=== PATIENT | female | born 1985 | race Caucasian/White ===

== ENCOUNTER 2016-07-05 16:24 | Emergency (ER) | payer MEDICAID ==
[2016-07-05 17:00] VITALS: BP 139/83
--- NOTE | 2016-07-05 17:42 | ERNOTE ---
Lower Extremity HPI - Narrative Date of Service: 07/05/16 - General Lower Extremities Pain: 2nd toe: left Source: patient Exam Limitations: no limitations - Immun/Allergies/Home Medications Allergies/Adverse Reactions: Allergies Allergy/AdvReac Type Severity Reaction Status Date / Time codeine Allergy Verified 07/05/16 17:00 hydrocodone Allergy Verified 07/05/16 17:00 Home Medications: HOME MEDICATIONS buPROPion HCL [Wellbutrin] 300 mg PO DAILY 09/02/15 [Last Taken Unknown] Fluoxetine HCl 20 mg PO DAILY 07/05/16 [Last Taken Unknown] Naproxen [Naprosyn] 500 mg PO BID #60 tablet 07/05/16 [Last Taken Unknown] - History of Present Illness Occurred: other - 2 days ago Location of Incident: home Method of Injury: Reports: direct blow Loss of Consciousness: Reports: no loss of consciousness Other Injuries: Reports: none Review of Systems - Review of Systems Constitutional: Present: See HPI EYE: Present: no symptoms reported ENT: Present: no symptoms reported Respiratory: Present: no symptoms reported Cardiology: Present: no symptoms reported Gastrointestinal/Abdominal: Present: no symptoms reported Genitourinary: Present: no symptoms reported Musculoskeletal: Present: See HPI Skin: Present: no symptoms reported Neurological: Present: no symptoms reported Endocrine: Present: no symptoms reported Hematologic/Lymphatic: Present: no symptoms reported Psych: Present: no symptoms reported - Patient's Past Medical History Patient History - Medical: No pertinent hx Patient History - Cancer: No Hx of Cancer Patient History - Surgical Procedures: Tubal Ligation Physical Exam - Physical Exam General Appearance: Present: wd/wn, alert, moderate distress Eye Exam: Normal inspection: bilateral, PERRL: bilateral Ears, Nose, Throat: Present: normal ENT inspection, hearing grossly normal, normal pharynx Neck: Present: normal inspection, nontender Respiratory: Present: no respiratory distress, normal breath sounds, no accessory muscle use, chest nontender, lungs clear Cardiovascular/Chest: Present: regular rate, rhythm, no murmur, normal peripheral pulses Gastrointestinal/Abdominal: Present: normal bowel sounds, nontender, nondistended, soft, no organomegaly Rectal Exam: Present: deferred Back Exam: Present: normal inspection, normal range of motion Extremity Exam: Present: decreased range of motion, joint redness, joint swelling, other - marked tenderness at the distal 2nd toe on the left Neurological Exam: Present: alert, oriented, normal mood/affect Skin Exam: Present: normal color, warm/dry Lymphatic Exam: Present: no adenopathy ED Progress - Vital Signs Patient's Vital Signs:: I have reviewed the patient's vital signs. Vital Signs: Vital Signs 07/05/16 16:58 Temperature 35.9 C L Pulse Rate 76 Respiratory 14 Rate Blood Pressure 139/83 O2 Sat by Pulse 98 Oximetry - X-Ray X-Ray #1 X-Ray: toe Interpretation: Interp. by me, Reviewed by me - Progress/Reassessment Chief Complaint: Foot Injury/Pain Progress:: Unchanged - Transfer of Care Expected Disposition: Discharge Procedures Pre-Proc Neuro Vasc Exam: normal Alignment good: Yes Splint applied by: Nurse Post-Proc Neuro Vasc Exam: normal Comment: margo tape the 2nd and 3rd toes Departure Clinical Impression: Toe fracture, left - Departure Disposition: Home self-care Condition: Good Instructions: Toe Fracture, [id number] Prescriptions: Naproxen [Naprosyn] 500 mg PO BID #60 tablet
== END 2016-07-05 17:48 | disposition home or self-care (01) ==
LOC: ER 16:24
DX: S92.912A Unspecified fracture of left toe(s), initial encounter for closed fracture (principal); W22.8XXA Striking against or struck by other objects, initial encounter

== ENCOUNTER 2016-08-19 14:49 | Observation (INO) | payer MEDICAID ==
[2016-08-19 15:28] LABS: Hematocrit 41.8 % (37.0-47.0); Hemoglobin 14.3 gm/dL (12.5-16.0); Mean Cell Volume 91.1 fl (78-100); Mean Corpuscular Hemoglobin 31.2 pg (27-31); Mean Corpuscular Hgb Conc 34.2 g/dl (32-36); Mean Platelet Volume 8.7 fl (6.0-9.5); Neutrophil # 3.7 K/mm3 (1.3-6.0); Neutrophil % 55.2 % (42-75.0); Platelet Count 320 K/mm3 (150-450); Red Blood Count 4.59 M/mm3 (4.2-5.4); Red Cell Distribution Width 12.9 % (11.5-14.0); White Blood Count 6.7 K/mm3 (4.0-10.5)
[2016-08-19] MEDS ORDERED: NORMAL SALINE 1,000 ML IV ONE (15:33)
[2016-08-19] MEDS ORDERED: MORPHINE SULFATE 2 MG/ML DISP.SYRIN IV ONE (15:33)
[2016-08-19 15:48] LABS: Anion Gap 12.7 mmol/L (6.8-13.8); BUN/Creatinine Ratio 18.4 (9.0-21.6); Bilirubin, Total 0.6 mg/dL (0.0-1.1); Ca. Corrected For Albumin 8.6 mg/dL (8.4-10.2); Calcium * 8.9 mg/dL (7.9-10.9); Carbon Dioxide 27.2 mmol/L (24-32.6); Potassium 3.9 mmol/L (3.4-4.6); Total Protein 7.4 gm/dL (6.2-8.2)
--- NOTE | 2016-08-19 15:59 | ERNOTE ---
Abdominal HPI - Narrative Date of Service: 08/19/16 - General Chief Complaint: Abdominal Pain Time Seen by Provider: 08/19/16 15:24 Source: patient Exam Limitations: no limitations - Immun/Allergies/Home Medications Immunizatons: IMMUNIZATION HX Immunizations Up to Date Yes History of Influenza Vaccine No Allergies/Adverse Reactions: Allergies codeine Allergy (Verified 08/19/16 15:03) hydrocodone Allergy (Verified 08/19/16 15:03) Home Medications: HOME MEDICATIONS buPROPion HCL [Wellbutrin] 450 mg PO DAILY 09/02/15 [Last Taken Unknown] Naproxen [Naprosyn] 500 mg PO BID #60 tablet 07/05/16 [Last Taken Unknown] - History of Present Illness Narrative: Pt. comes in with c/o upper abd pain that radiates up her chest and around her lateral ribs into her back. Pt. states that deep breathing exacerbates the pain and nothing alleviates the pain despite taking naproxen for pain. Pt. denies any nausea, vomiting, dysuria, headache, fever, CP, but does state that she has SOB from the pain when she takes a deep breath. Review of Systems - Review of Systems Constitutional: Present: no symptoms reported. Absent: weakness, fatigue, malaise, weight loss EYE: Present: no symptoms reported ENT: Present: no symptoms reported Respiratory: Present: shortness of breath. Absent: cough, wheezing Cardiology: Present: no symptoms reported Gastrointestinal/Abdominal: Present: abdominal pain. Absent: nausea, vomiting, diarrhea Genitourinary: Present: no symptoms reported Musculoskeletal: Present: no symptoms reported. Absent: back pain, neck pain, joint pain Skin: Present: no symptoms reported Neurological: Present: no symptoms reported. Absent: headache, dizziness/light- headedness, numbness, tingling All Other Systems: All systems neg except as marked - Patient's Past Medical History Patient History - Medical: No pertinent hx Patient History - Cardiac/Respiratory: No pertinent hx Patient History - Cancer: No Hx of Cancer Patient History - Surgical Procedures: Tubal Ligation Patient History - Other: None - Social History Psych History: Hx of Depression Alcohol Use: occasionally Drug Use: none - Immunizations Immunizations Up to Date: Yes History of Influenza Vaccine: No Physical Exam - Physical Exam General Appearance: Present: wd/wn, alert, no apparent distress Eye Exam: Normal inspection: bilateral, PERRL: bilateral, EOMI: bilateral Ears, Nose, Throat: Present: normal ENT inspection, hearing grossly normal, normal pharynx Neck: Present: normal inspection, nontender. Absent: lymphadenopathy (R), lymphadenopathy (L) Respiratory: Present: no respiratory distress, normal breath sounds, no accessory muscle use, chest nontender, lungs clear Cardiovascular/Chest: Present: regular rate, rhythm, no murmur, normal peripheral pulses Gastrointestinal/Abdominal: Present: normal bowel sounds, nondistended, soft, no organomegaly, tenderness - RUQ, Irby sign. Absent: McBurney sign, Obturator sign, Psoas sign Back Exam: Present: normal inspection, normal range of motion, no CVA tenderness , no vertebral tenderness Extremity Exam: Present: normal inspection, non-tender, no edema, normal range of motion Neurological Exam: Present: alert, oriented, normal mood/affect, no motor/ sensory deficits Skin Exam: Present: normal color, warm/dry. Absent: pallor, skin rash ED Progress - Date and Time Seen: Date and Time: 08/19/16 17:51 Pt. still uncomfortable. Discussed options with her and she would like admitted for fluids and pain control. Discussed with Dr Gaspar and he recommends admitting the patient for pain control and fluids and possible removal of gall bladder tomorrow. Discussed with Dr Malgorzata Nation and he agrees to admit the pt. - Results and Orders Patient's Lab Results:: I have reviewed the patient's lab results. - Vital Signs Patient's Vital Signs:: I have reviewed the patient's vital signs. Vital Signs: Vital Signs 08/19/16 14:57 Temperature 35.6 C L Pulse Rate 75 Respiratory 16 Rate Blood Pressure 114/73 O2 Sat by Pulse 98 Oximetry - CT/Ultrasound CT/Ultrasound Narrative: CT with stones and sludge no wall thickening or pericholecystic fluid - Progress/Reassessment Chief Complaint: Abdominal Pain Departure - Departure Clinical Impression: Inadequate pain control Cholelithiasis Qualifiers: Cholelithiasis location: gallbladder Cholecystitis presence: with cholecystitis Cholecystitis acuity: acute Biliary obstruction: without biliary obstruction Qualified Code(s): K80.00 - Calculus of gallbladder with acute cholecystitis without obstruction Disposition: [facility] Condition: Fair
[2016-08-19] MEDS ORDERED: ONDANSETRON HCL/PF 2 MG/ML VIAL ONE (16:07)
[2016-08-19] MEDS ORDERED: MORPHINE SULFATE 2 MG/ML DISP.SYRIN ONE (16:07)
[2016-08-19] MEDS ORDERED: ONDANSETRON HCL/PF 2 MG/ML VIAL IV ONE (16:10)
[2016-08-19 16:26] LABS: Urine Appearance Slightly Cloudy; Urine Bilirubin Negative (NEGATIVE); Urine Blood 10 /ul (NEGATIVE); Urine Color Yellow; Urine Ketone Negative (NEGATIVE); Urine Protein Negative (NEGATIVE); Urine Specific Gravity 1.015 SP.GR. (1.005-1.010); Urine Urobilinogen Normal (NORMAL)
[2016-08-19 16:27] LABS: Urine Bacteria 1+; Urine Nitrite Negative (NEGATIVE); Urine RBC 0-5 /hpf (0-5); Urine WBC 0-5 /hpf (0-5)
[2016-08-19 16:28] LABS: Urine Amorphous Sediment Few - 1+ (NONE-FEW)
[2016-08-19] MEDS ORDERED: ONDANSETRON HCL/PF 2 MG/ML VIAL IV PRN (17:54)
[2016-08-19] MEDS: NORMAL SALINE 1,000 ML IV PRN (18:28)
--- NOTE | 2016-08-19 18:55 | HP ---
Chief Complaint - Chief Complaint Date of Service: 08/19/16 Time of Service: 18:44 Chief Complaint: RUQ abdominal pain History of Present Illness: This 30 y/o woman has been having RUQ abdominal pain off and on for about 2 years. At 0515 today she got up today to go to the bathroom at home and noticed this pain, which was RUQ and felt as if both sides of her ribs were being squeezed together. There was nausea, but no vomiting. She went back to bed and slept off and on till shortly after noon. She then had a small amount of a pot of beef and beans and a small amount of coffee. At this point her pain became quite severe and she came to the [facility] ER. She was nauseated, but there was still no vomiting. There has been no fever. There has been no diarrhea or constipation. She was given morphine and zofran in the ER. Gallbladder ultrasound showed sludge and gallstones. Blood work showed a slight elevation in liver enzymes. Bilirubin was normal. WBC count was normal. Her pain is mild at the time of this examination. - Patient's Past Medical History Patient History - Medical: No pertinent hx Patient History - Cardiac/Respiratory: No pertinent hx Patient History - Cancer: No Hx of Cancer Patient History - Surgical Procedures: Tubal Ligation, T & A, Other - uterine ablation, removal of cervical warts. Patient History - Other: None, Other - has 2 children, 11 and 4 y/o - Family History Mother Family History - Medical: Other - gallstones - Social History Psych History: Hx of Depression Smoking Status: Current every day smoker Alcohol Use: occasionally Drug Use: none - Immunizations Immunizations Up to Date: Yes History of Influenza Vaccine: No Review Of Systems (GEN) - Review of Systems Generalized/Overall Review: Present: No Symptoms Reported EENTM: Present: No Symptoms Reported Respiratory: Present: No Symptoms Reported Cardiac: Present: No Symptoms Reported Abdominal: Present: Nausea, Abdominal Pain Genitourinary: Present: No Symptoms Reported Musculoskeletal: Present: No Symptoms Reported Neurological: Present: No Symptoms Reported Skin: Present: No Symptoms Reported Endocrine: Present: No Symptoms Reported Misc: All systems neg except as marked Immunizations: IMMUNIZATION HX Immunizations Up to Date Yes History of Influenza Vaccine No Allergies/Adverse Reactions: Allergies Allergy/AdvReac Type Severity Reaction Status Date / Time codeine Allergy Verified 08/19/16 15:03 hydrocodone Allergy Verified 08/19/16 15:03 Home Medications: HOME MEDICATIONS buPROPion HCL [Wellbutrin] 450 mg PO DAILY 09/02/15 [Last Taken Unknown] Naproxen [Naprosyn] 500 mg PO BID #60 tablet 07/05/16 [Last Taken Unknown] Exam - Exam Vital Signs: Vital Signs - Last Taken Selected Entries 08/19/16 08/19/16 14:57 17:12 Temperature 35.6 C L Temperature Tympanic Source Pulse Rate 84 Respiratory 16 Rate Blood Pressure 114/73 94/48 Blood Pressure Sitting Position O2 Sat by Pulse 99 Oximetry Oxygen Delivery Room Air Method Constitutional: Present: Alert, Oriented x3, Cooperative, Well developed, No distress, Obese Eye Exam: bilateral eye: normal inspection, PERRL, EOMI Neck: Present: full range of motion, normal inspection Back Exam: Present: normal inspection, no CVA tenderness, no vertebral tenderness Respiratory: Present: normal breath sounds, no respiratory distress, no accessory muscle use Cardiovascular/Chest: Present: regular rate, rhythm, no murmur Abdomen: Present: Normal bowel sounds, soft, nondistended, no rebound tenderness , no hepatospenomegaly, no masses, obese, tender - R U Q, positive Irby sign Extremity: Present: non-tender, no pedal edema Skin Exam: Present: normal color, warm/dry, no cyanosis Neurologic: Present: alert, oriented x 3 Appearance: Present: appropriate appearance, appropriate insight, neat, no memory impairment Eye contact: Present: cooperative, good eye contact, normal speech Thoughts: Present: normal thought pattern Diagnostic Studies: Laboratory Results WBC 6.7 K/mm3 (4.0-10.5) 08/19/16 15:21 RBC 4.59 M/mm3 (4.2-5.4) 08/19/16 15:21 Hgb 14.3 gm/dL (12.5-16.0) 08/19/16 15:21 Hct 41.8 % (37.0-47.0) 08/19/16 15:21 MCV 91.1 fl (78-100) 08/19/16 15:21 MCH 31.2 pg (27-31) H 08/19/16 15:21 MCHC 34.2 g/dl (32-36) 08/19/16 15:21 RDW 12.9 % (11.5-14.0) 08/19/16 15:21 Plt Count 320 K/mm3 (150-450) 08/19/16 15:21 MPV 8.7 fl (6.0-9.5) 08/19/16 15:21 Immature Gran % (Auto) 0.10 % (0.001-0.429) 08/19/16 15:21 Immature Gran # (Auto) 0.01 K/mm3 (0.000-0.0310) 08/19/16 15:21 Neutrophils % 55.2 % (42-75.0) 08/19/16 15:21 Lymphocytes % 36.0 % (20-51) 08/19/16 15:21 Monocytes % 7.3 % (0.0-9) 08/19/16 15:21 Eosinophils % 1.0 % (0.0-3.0) 08/19/16 15:21 Basophils % 0.4 % (0.0-1.0) 08/19/16 15: Nucleated RBC % 0.0 k/mm3 (0-1) 08/19/16 15:21 Neutrophils # 3.7 K/mm3 (1.3-6.0) 08/19/16 15:21 Lymphocytes # 2.4 k/mm3 (1.5-3.5) 08/19/16 15:21 Monocytes # 0.5 k/mm3 (0.0-1.0) 08/19/16 15:21 Eosinophils # 0.1 k/mm3 (0.0-0.7) 08/19/16 15:21 Absolute Basophils 0.0 k/mm3 (0.0-0.1) 08/19/16 15:21 Sodium 140 mmol/L (132-142) 08/19/16 15:21 Plasma Sodium 140 mmol/L (130-142) 08/19/16 15:21 Potassium 3.9 mmol/L (3.4-4.6) 08/19/16 15:21 Chloride 104 mmol/L (97-106) 08/19/16 15:21 Carbon Dioxide 27.2 mmol/L (24-32.6) 08/19/16 15:21 Anion Gap 12.7 mmol/L (6.8-13.8) 08/19/16 15:21 BUN 16 mg/dL (3-23) 08/19/16 15:21 Creatinine 0.87 mg/dL (0.4-1.4) 08/19/16 15:21 Est GFR (Non-Af Amer) 81 mL/min (60-130) 08/19/16 15:21 BUN/Creatinine Ratio 18.4 (9.0-21.6) 08/19/16 15:21 Random Glucose 94 mg/dL (70-110) 08/19/16 15:21 Calcium 8.9 mg/dL (7.9-10.9) 08/19/16 15:21 Calcium Adj for Albumin 8.6 mg/dL (8.4-10.2) 08/19/16 15:21 Total Bilirubin 0.6 mg/dL (0.0-1.1) 08/19/16 15:21 AST 306 U/L (0-48) H 08/19/16 15:21 ALT 242 U/L (19-67) H 08/19/16 15:21 Alkaline Phosphatase 77 U/L (50-170) 08/19/16 15:21 Total Protein 7.4 gm/dL (6.2-8.2) 08/19/16 15:21 Albumin 4.0 gm/dl (3.4-5.0) 08/19/16 15:21 Amylase 44 U/L (25-115) 08/19/16 15:21 Lipase 133 U/L (73-393) 08/19/16 15:21 Serum HCG, Qual Negative (NEGATIVE) 08/19/16 15:21 Urine Color Yellow 08/19/16 15:46 Urine Appearance Slightly cloudy 08/19/16 15:46 Urine pH 8.0 pH (5.0-7.0) H 08/19/16 15:46 Ur Specific [place] 1.015 SP.GR. (1.005-1.010) 08/19/16 15:46 Urine Protein Negative mg/dL (NEGATIVE) 08/19/16 15:46 Urine Glucose (UA) Negative mg/dL (NEGATIVE) 08/19/16 15:46 Urine Ketones Negative mg/dL (NEGATIVE) 08/19/16 15:46 Urine Blood 10 /ul (NEGATIVE) H 08/19/16 15:46 Urine Nitrate Negative (NEGATIVE) 08/19/16 15:46 Urine Bilirubin Negative mg/dl (NEGATIVE) 08/19/16 15:46 Urine Urobilinogen Normal EU/dl (NORMAL) 08/19/16 15:46 Ur Leukocyte Esterase Negative /ul (NEGATIVE) 08/19/16 15:46 Urine RBC 0-5 /hpf (0-5) 08/19/16 15:46 Urine WBC 0-5 /hpf (0-5) 08/19/16 15:46 Ur Epithelial Cells 0-5 /hpf (0-5) 08/19/16 15:46 Amorphous Sediment Few - 1+ (NONE-FEW) 08/19/16 15:46 Urine Bacteria 1+ (NONE) H 08/19/16 15:46 Urine Culture Comments No culture indicated 08/19/16 15:46 Assessment/Plan - Narrative Narrative: NPO, IV fluids, symptomatic control, consult surgeon. Estimate stay of at least one midnight. - Assessment/Plan (1) Biliary colic Problem: Acute (2) Tobacco abuse Problem: Chronic (3) Cholelithiasis Problem: Acute Qualifiers: Cholelithiasis location: gallbladder Cholecystitis presence: with cholecystitis Cholecystitis acuity: acute Biliary obstruction: without biliary obstruction Qualified Code(s): K80.00 - Calculus of gallbladder with acute cholecystitis without obstruction
--- NOTE | 2016-08-19 19:58 | CONS ---
- Reason for consultation (1) Biliary colic Date of Service: 08/19/16 Reason for Consultation:: RUQ abdominal pain HPI - General Date of Service: 08/19/16 Narrative: patient awoke with epigastric and RUQ pain radiating into the back at 5:30 this A.M. Pain persisted through the day, rated at 8/10. No nausea until at the hospital. Pain helped by Morphine but still persists. Has had multiple episodes of similar pain in the past but have been self limiting. No change in bowel habits. No recent wt. gain or loss. Source: patient Exam Limitations: no limitations - History of Present Illness Initial Comments: See above narrative. Timing/Duration: 4-6 hours Severity: severe Modifying Factors - (Worsens): Reports: eating Allergies/Adverse Reactions: Allergies codeine Allergy (Verified 08/19/16 19:17) hydrocodone Allergy (Verified 08/19/16 19:17) Home Medications: Home Medications Medication Instructions Recorded Last Taken buPROPion HCL [Wellbutrin] 450 mg PO DAILY 09/02/15 Unknown - Patient's Past Medical History Patient History - Medical: Anemia, Depression Additional info: Hx of depression on wellbutrin. Hx of menorrhagia treated with endometrial ablation. Patient History - Cardiac/Respiratory: No pertinent hx Patient History - Cancer: No Hx of Cancer Patient History - Surgical Procedures: Tubal Ligation, T & A Additional Info: endometrial ablation. Patient History - Other: None - Family History Family History:: no untoward family reactions to anesthesia - Family History Mother Family History - Medical: No pertinent hx Family History - Cardiac/Respiratory: History Unknown Family History - Cancer: No pertinent family hx - Social History Living Situations: significant other Abuse History: No History of abuse Psych History: Hx of Depression Smoking Status: Current every day smoker Have you smoked in the past 12 months: Yes Alcohol Use: occasionally Drug Use: none - Immunizations Immunizations Up to Date: Yes History of Influenza Vaccine: No Medications - Medications Current Medications: Current Medications Sodium Chloride (Sodium Chloride 0.9%) 1,000 mls @ 125 mls/hr IV .Q8H PRN PRN Reason: HYDRATION Stop: 09/18/16 17:56 Last Admin: 08/19/16 18:28 Dose: 125 mls/hr Review of Systems - Review of Systems Generalized/Overall Review: Present: No Symptoms Reported EENTM: Present: No Symptoms Reported Respiratory: Present: No Symptoms Reported Cardiac: Present: No Symptoms Reported Abdominal: Present: Other - See HPI Genitourinary: Present: No Symptoms Reported Musculoskeletal: Present: No Symptoms Reported Neurological: Present: No Symptoms Reported Skin: Present: No Symptoms Reported Endocrine: Present: No Symptoms Reported Physical Examination - Exam Narrative: WD WN Female. Moderately overweight. Vital Signs: Vital Signs - Last Taken Temp 36.8 C 08/19/16 18:58 Pulse 73 08/19/16 18:58 Resp 16 08/19/16 18:58 BP 115/75 08/19/16 18:58 Pulse Ox 98 08/19/16 18:58 O2 Oxygen Delivery Method Room Air Constitutional: Present: Alert, Oriented x3, Cooperative, Well nourished, Moderate distress ENT Exam: Present: hearing grossly normal Neck: Present: non-tender, full range of motion, supple, normal inspection, trachea midline Breasts: Present: Exam deferred Respiratory: Present: lungs clear, normal breath sounds, no respiratory distress Cardiovascular/Chest: Present: normal peripheral pulses, regular rate, rhythm, no chest tenderness, no gallop, no JVD, no murmur, no rub Peripheral Pulses: carotid (R): 2+, carotid (L): 2+, femoral (R): 2+, femoral (L ): 2+ Abdomen: Present: no hepatospenomegaly, no masses, tender, guarding, rebound tenderness, positive Irby sign /Rectal: Present: Exam deferred Extremity: Present: normal range of motion, normal inspection Skin Exam: Present: normal color Lymphatic: Present: no adenopathy Neurologic: Present: cue worker II-XII nml as tested, normal mood/affect, oriented x 3 Appearance: Present: appropriate appearance Eye contact: Present: cooperative, good eye contact, normal speech. Absent: threatening eye contact, belligerent Thoughts: Present: normal thought pattern - Results and Findings: Narrative: Patient presents with classic hx and physical findings for acute biliary colic. Ultrasound demonstrates Gallstones in the neck of the gallbladder. WBC normal. Hepatocellular enzymes slightly elevated. Alk Phos and bilirubin nl. After discussion with the patient she requests a cholecystectomy be done. I have discussed the procedure, its indications and risks including bleeding, infection and bile duct injury. She consents to the surgery. She is also aware of the 5% conversion from laparoscopic to open surgery. - Assessments/Findings (1) Biliary colic Problem: Acute
[2016-08-19] MEDS ORDERED: ceFAZolin SODIUM/DEXTROSE,ISO 2 GM in Premix Bag 1 BAG IV ONE (19:59)
[2016-08-19] MEDS: MORPHINE SULFATE 2 MG/ML DISP.SYRIN IV PRN ×2 (20:00→22:58)
[2016-08-19] MEDS ORDERED: ceFAZolin SODIUM 2 GM in DEXTROSE 5 % IN WATER 50 ML IV PRN ×2 (21:05)
[2016-08-20] MEDS: NORMAL SALINE 1,000 ML IV PRN ×3 (02:19→18:47)
[2016-08-20] MEDS ORDERED: NORMAL SALINE 1,000 ML IV ONE (07:40)
[2016-08-20] MEDS ORDERED: ceFAZolin SODIUM 1 GM VIAL IV ONE (07:50)
[2016-08-20] MEDS ORDERED: RINGERS SOLUTION,LACTATED 1,000 ML IV ONE (08:05)
[2016-08-20] MEDS ORDERED: BUPIVACAINE HCL/EPINEPHRINE 50 ML VIAL IJ ONE (09:10)
--- NOTE | 2016-08-20 09:54 | OR ---
Operative Report - Dictated Report Narrative: Pre op dx - Biliary colic Post op dx - Biliary colic Operation - Laparoscopic cholecystectomy EBL - 10 cc Summary - Patient was placed on operating table and general anaesthesia induced. Patient was prepped and draped for a lap cholecystectomy. Time out was held. A supraumbilical transvers inision was made about 2 cm long. This was carried doun to fascia with alber scissors. The linea alba was elevated between two ethibond stay sutures and incised with a knife. Peritoneum was grasped and incised. A 12 millimeter blunt trocar was placed and the abdomen was insufflated with CO2. One subxyphoid and two rt lateral 5 mm ports were placed under direct vision. The abdomen was explored with the camera and no pathology was identified. The Gall bladder was grasped and elevated. There were quite a few adhesions which were taken down with blunt and sharp diseection. Dissection was carried down the Gallbladder to the cystic duct. The cystic artery was identified anterior to the Gall bladder. This was elevated and dissection was carried out behind the Gall bladder to open the window between the Gall bladder and the liver. The Common bile duct was identified in the obdulio hepatis. The cystic artery was then clipped with two proximal clips and one distal and divided. The cystic duct was small and this was clipped with 2 proximal clips and one distal. The cystic duct was then divided. The Gall bladder was then taken off the liver bed primarily with bovie cautery. This was removed through the supraumbilical incision. Hemostasis was obtained. The abdomen was irrigated with copious amts of saline and the trocars were removed under direct vision with no bleeding identified. The fascia was closed with a figure of 8 o silk suture. The skin was closed with 4-o subcuticular monocryl and the patient was returned to the recovery room in stable condition. Jitendra Gaspar M.D.
[2016-08-20] MEDS: MORPHINE SULFATE 2 MG/ML DISP.SYRIN IV PRN ×3 (11:36→23:39)
[2016-08-20] MEDS ORDERED: MORPHINE SULFATE 10 MG/0.5 ML SYRINGE PO PRN (12:14)
[2016-08-20] MEDS ORDERED: ACETAMINOPHEN 325 MG TABLET PO PRN (12:17)
[2016-08-20] MEDS ORDERED: KETOROLAC TROMETHAMINE 30 MG/ML VIAL IV STA ×2 (12:26→15:06)
--- NOTE | 2016-08-20 12:32 | PN ---
Subjective - Date and Time Seen Date: 08/20/16 Time: 12:29 Subjective Narrative: Having post op pain. Taking ice chips and jello. No nausea. Codeine causes here severe MEDICAL CLAIMS MANAGER side effects. Hydrocodone causes her to black out. Has been tolerating IV morphine well. Has not yet been out of bed. Objective - Review of Systems Generalized/Overall Review: Reports: Malaise EENTM: Reports: No Symptoms Reported Respiratory: Reports: No Symptoms Reported Cardiac: Reports: No Symptoms Reported Abdominal: Reports: Other - post op pain Genitourinary Symptoms: Reports: No Symptoms Reported Musculoskeletal Complaints: Reports: No Symptoms Reported Neurological: Reports: No Symptoms Reported Skin: Reports: No Symptoms Reported Endocrine: Reports: No Symptoms Reported Misc: All systems neg except as marked - Vitals Vitals: Last Vital Signs Selected Entries 08/20/16 10:05 Temperature 36.4 C L Pulse Rate 88 Respiratory 12 Rate Respiratory Normal Effort Blood Pressure 108/64 O2 Sat by Pulse 96 Oximetry Oxygen Delivery Nasal Cannula Method Oxygen Flow 1 Rate - Exam Constitutional: Present: Oriented x3, Cooperative, Well developed, No distress, Somnolent, Obese ENT Exam: Present: normal ENT inspection, hearing grossly normal Neck: Present: normal inspection Respiratory: Present: lungs clear, no respiratory distress Cardiovascular/Chest: Present: regular rate, rhythm, no murmur Abdomen: Present: Normal bowel sounds, soft, nondistended, no rebound tenderness , no hepatospenomegaly, no masses, obese, tender - post op tenderness Extremity: Present: normal inspection, no pedal edema Skin Exam: Present: normal color, warm/dry, no cyanosis Neurologic: Present: oriented x 3 Appearance: Present: appropriate appearance, neat Eye contact: Present: cooperative, good eye contact Assessment/Plan Plan Narrative: Spoke with Dr. Gaspar. Have already added po tylenol and po morphine to treatment choices. Will also had IV toradol. Possibly home later today. - Problems/Diagnosis (1) Biliary colic Problem: Acute (2) Tobacco abuse Problem: Chronic (3) Cholelithiasis Problem: Acute Qualifiers: Cholelithiasis location: gallbladder Cholecystitis presence: with cholecystitis Cholecystitis acuity: acute Biliary obstruction: without biliary obstruction Qualified Code(s): K80.00 - Calculus of gallbladder with acute cholecystitis without obstruction
[2016-08-20] MEDS ORDERED: KETOROLAC TROMETHAMINE 30 MG/ML VIAL IV PRN (18:00)
--- NOTE | 2016-08-21 07:56 | PN ---
Subjective - Date and Time Seen Date: 08/21/16 Time: 08:00 Subjective Narrative: Still with some mild discomfort, primarily incisional. No nausea. Has been OOB. Objective Objective Narrative: Afebrile. Vital signs normal. Wounds with minimal drainage. - Review of Systems Generalized/Overall Review: Reports: No Symptoms Reported EENTM: Reports: No Symptoms Reported Respiratory: Reports: No Symptoms Reported Cardiac: Reports: No Symptoms Reported Abdominal: Reports: No Symptoms Reported Genitourinary Symptoms: Reports: No Symptoms Reported Musculoskeletal Complaints: Reports: No Symptoms Reported Neurological: Reports: No Symptoms Reported Skin: Reports: No Symptoms Reported Endocrine: Reports: No Symptoms Reported - Vitals Vitals: Last Vital Signs Temp 36.8 C 08/21/16 00:15 Pulse 60 08/21/16 00:15 Resp 14 08/21/16 00:15 BP 118/76 08/21/16 00:15 Pulse Ox 98 08/21/16 00:15 Assessment/Plan Plan Narrative: Discharge today. - Problems/Diagnosis (1) Biliary colic Problem: Acute
[2016-08-21 08:04] VITALS: BP 103/70
[2016-08-21] MEDS ORDERED: BISACODYL 5 MG TABLET.DR PO ONE (10:45)
[2016-08-21] MEDS ORDERED: MAGNESIUM CITRATE 300 ML BTL PO ONE (10:45)
--- NOTE | 2016-08-21 10:55 | DS ---
(1) Biliary colic Problem: Resolved (2) Tobacco abuse Problem: Chronic (3) Cholelithiasis Problem: Resolved Qualifiers: Cholelithiasis location: gallbladder Cholecystitis presence: with cholecystitis Cholecystitis acuity: acute Biliary obstruction: without biliary obstruction Qualified Code(s): K80.00 - Calculus of gallbladder with acute cholecystitis without obstruction Description of Stay: Made NPO and given IV fluids and symptomatic medication at time of admission. Dr. Jitendra Gaspar, general surgery, consulted. Patient underwent laparoscopic cholecystectomy yesterday. Last evening, still requiring parenteral pain medication, so discharge held till today. Patient feels considerably better today, but no BM yet, so will give laxatives and discharge home. Procedures Performed: see notes below - Laparoscopic cholecystectomy Discharge Disposition: Home self care Disposition: Home self-care Condition: Fair Discharge Activity: Activity as tolerated - Lift nothing heavier than a gallon of milk Discharge Diet: General/regular food Consultation Done:: Dr. Jitendra Gaspar, general surgery Problem Oriented Discharge Instructions to Patient/Family: Laparoscopic Cholecystectomy Additional Patient Instructions (free text): Check with Dr. Gaspar about followup appt date, and arrange the appt. Prescriptions (Any new or edited meds): Morphine Sulfate 15 mg PO QID PRN #8 tab PRN Reason: Pain not relieved by naproxen Naproxen [Naprosyn] 500 mg PO BID PRN #60 tablet PRN Reason: pain not relieved by tylenol Complete Home Medications List: Complete Home Medication List: buPROPion HCL [Wellbutrin] 450 mg PO DAILY 09/02/15 Acetaminophen [Tylenol] 650 mg PO QID PRN #0 tablet 08/21/16 Morphine Sulfate 15 mg PO QID PRN #8 tab 08/21/16 Naproxen [Naprosyn] 500 mg PO BID PRN #60 tablet 08/21/16
== END 2016-08-21 10:45 | disposition home or self-care (01) ==
LOC: ER 14:49 → MS 17:50
PROVIDERS: ADMIT Allergy & Immunology; ATTEND Allergy & Immunology
PROC: 0FT44ZZ Resection of Gallbladder, Percutaneous Endoscopic Approach (ICD-10-PCS; principal; 2016-08-20 08:00)
DX: K80.12 Calculus of gallbladder with acute and chronic cholecystitis without obstruction (principal); F17.210 Nicotine dependence, cigarettes, uncomplicated
CPT/HCPCS: 36415; 47562; 74020; 76705; 80053; 81001; 82150; 83690; 84703; 85025; 88304; 96374; 96375; 96376; 99284; G0378

== ENCOUNTER 2016-08-26 21:54 | Emergency (ER) | payer MEDICAID ==
--- NOTE | 2016-08-26 22:38 | ERNOTE ---
Abdominal HPI - Narrative Date of Service: 08/26/16 - General Chief Complaint: Abdominal Pain Time Seen by Provider: 08/26/16 22:09 Source: patient, other - S.O. - Immun/Allergies/Home Medications Immunizatons: IMMUNIZATION HX Immunizations Up to Date No History of Influenza Vaccine No Hx Pneumococcal Vaccination No Allergies/Adverse Reactions: Allergies codeine Allergy (Verified 08/26/16 22:06) hydrocodone Allergy (Verified 08/26/16 22:06) Home Medications: HOME MEDICATIONS buPROPion HCL [Wellbutrin] 450 mg PO DAILY 09/02/15 [Last Taken Unknown] Acetaminophen [Tylenol] 650 mg PO QID PRN #0 tablet 08/21/16 [Last Taken Unknown ] Morphine Sulfate 15 mg PO QID PRN #8 tab 08/21/16 [Last Taken 08/25/16] Naproxen [Naprosyn] 500 mg PO BID PRN #60 tablet 08/21/16 [Last Taken 08/26/16 20:30] - History of Present Illness Narrative: PT IS S/P ROSALIND PIPE ON Jul, AND WENT HOME ON Jul. SHE HAS BEEN EATING AND STOOLING REGULARLY BUT SINCE LAST NIGHT HAS C/O OF LEFT LATERAL UPPER ABDOMINAL PAIN WORSE WITH MOVEMENT, BETTER WITH REST. SHE HAD NORMAL BM AT 1630 TODAY AND JUST ATE OFFICE MESSENGER HELPER. LAST NIGHT SHE TOOK MORPHINE PO GIVEN HER AT DISCHARGE AND TONIGHT AT 2030 TOOK NAPROXEN 500 MG. SHE DENIES UTI SX. NO FEVER. NO N & V OR DIARRHEA. SHE HAS TWO 4 YO AND AN 11 YO AT HOME AND MAY HAVE LIFTED A 4 Y.O. BUT HAS BEEN TRYING TO STAY UNDER THE SUGGESTED LIMITATIONS. SHE HAS A HX OF DEPRESSION AND IS ALSO ON WELLBUTRIN BUT FORGOT TO TAKE IT TODAY. Prior Abdominal Problems: Present: other - RECENT SURGERY Prior Treatment: Present: recently hospitalized Review of Systems - Review of Systems Constitutional: Present: See HPI Gastrointestinal/Abdominal: Present: See HPI, abdominal pain. Absent: nausea, vomiting, diarrhea, constipation, eating less, drinking less Genitourinary: Present: no symptoms reported Musculoskeletal: Present: no symptoms reported Skin: Present: no symptoms reported Neurological: Present: no symptoms reported Psych: Present: no symptoms reported - Patient's Past Medical History Patient History - Medical: Anemia, Depression Patient History - Cardiac/Respiratory: No pertinent hx Patient History - Cancer: No Hx of Cancer Patient History - Surgical Procedures: Cholecystectomy, Tubal Ligation, T & A Patient History - Other: None LMP (females 10-50): 3 weeks - Family History Mother Family History - Medical: No pertinent hx Family History - Cardiac/Respiratory: History Unknown Family History - Cancer: No pertinent family hx - Social History Living Situations: home Abuse History: No History of abuse Psych History: Hx of Depression, Current tx/ever been on anti-depressants or anti-anxiety meds Smoking Status: Current every day smoker Alcohol Use: rarely Drug Use: none, marijuana - BUT SAYS NO RECENT USE - Immunizations Immunizations Up to Date: No Hx Pneumococcal Vaccination: No History of Influenza Vaccine: No Physical Exam - Physical Exam General Appearance: Present: wd/wn, alert, no apparent distress Respiratory: Present: no respiratory distress, normal breath sounds, no accessory muscle use, chest nontender, lungs clear Cardiovascular/Chest: Present: regular rate, rhythm, no murmur Gastrointestinal/Abdominal: Present: normal bowel sounds, nontender, nondistended, soft, no organomegaly, tenderness - PT HAS SOFT OBESE ABDOMEN WITH HEALING LAPROSCOPIC PORTS WITH NO SIGN OF INFECTION. ABDOMEN IS SOFT WITH NO GURADING OR REBOUND BUT SHE C/O TENDERNESS TO LEFT UPPER AND LATERAL ABDOMEN. Back Exam: Present: no CVA tenderness Neurological Exam: Present: alert, oriented, normal mood/affect Skin Exam: Present: normal color, warm/dry ED Progress - Results and Orders Patient's Lab Results:: I have reviewed the patient's lab results. Results and Orders: LABS NORMAL EXCEPT FOR ONLY SL. ELEVATED AST AND ALT WOULD BE EXPECTED AFTER LAP CHOLEY. CBC AND URINE ARE NEGATIVE. - Vital Signs Vital Signs: Vital Signs 08/26/16 21:59 Temperature 36.9 C Pulse Rate 81 Respiratory 18 Rate Blood Pressure 118/72 O2 Sat by Pulse 99 Oximetry - CT/Ultrasound CT/Ultrasound Narrative: READ BY ARGUS = NO SIGN OF ANY ABNORMALITY TO CT OF ABD WITH CONTRAST S/P LAP BRADLEY. - Progress/Reassessment Chief Complaint: Abdominal Pain Plan - Plan Plan: PT WILL BE DISCHARGED HOME. Departure - Departure Clinical Impression: Postoperative abdominal pain Disposition: Home Follow Up Needed Condition: Fair Instructions: Abdominal Pain, Adult, [id number] Additional Instructions: THE LABS ARE EXPECTED AND YOUR CT SCAN IS NORMAL. THE ABDOMINAL PAIN IS LIKELY NORMAL POST OP DISCOMFORT, MAYBE RELATED TO TRYING TO DO TOO MUCH TOO SOON. BE CAREFUL TO FOLLOW YOUR POST OP INSTRUCTIONS AND IF STILL HAVING PROBLEMS FOLLOW UP WITH YOUR SURGEON OR RETURN TO THE ER IF WORSE. USE YOUR MEDS DIRECTED.
[2016-08-26 22:48] LABS: Hematocrit 41.6 % (37.0-47.0); Hemoglobin 13.8 gm/dL (12.5-16.0); Mean Cell Volume 93.5 fl (78-100); Mean Corpuscular Hgb Conc 33.2 g/dl (32-36); Neutrophil # 4.6 K/mm3 (1.3-6.0); Neutrophil % 46.7 % (42-75.0); Platelet Count 343 K/mm3 (150-450); Red Blood Count 4.45 M/mm3 (4.2-5.4); Red Cell Distribution Width 13.3 % (11.5-14.0); White Blood Count 9.8 K/mm3 (4.0-10.5)
[2016-08-26 22:58] LABS: Albumin * 4.2 gm/dl (3.4-5.0); Anion Gap 12.9 mmol/L (6.8-13.8); BUN/Creatinine Ratio 21.8 (9.0-21.6); Bilirubin, Total 0.3 mg/dL (0.0-1.1); Ca. Corrected For Albumin 8.9 mg/dL (8.4-10.2); Calcium * 9.4 mg/dL (7.9-10.9); Potassium 3.9 mmol/L (3.4-4.6); Total Protein 7.7 gm/dL (6.2-8.2)
[2016-08-26 23:30] LABS: Urine Bilirubin Negative (NEGATIVE); Urine Blood 25 /ul (NEGATIVE); Urine Ketone Negative (NEGATIVE); Urine Nitrite Negative (NEGATIVE); Urine Protein Negative (NEGATIVE); Urine Urobilinogen Normal (NORMAL)
[2016-08-26 23:39] LABS: Urine Appearance Clear; Urine Bacteria TRACE; Urine Color Yellow; Urine Mucus Few - 1+; Urine WBC None Seen /hpf (0-5)
[2016-08-27 00:25] VITALS: BP 101/55
== END 2016-08-27 00:31 | disposition home or self-care (01) ==
LOC: ER 21:54
DX: G89.18 Other acute postprocedural pain (principal); R10.9 Unspecified abdominal pain